=== PATIENT | female | born 1955 | race Caucasian/White ===

== ENCOUNTER → 2017-01-07 | Outpatient (CLI) | payer BC ==
[~2017-01-07] MED LIST: 3N1 COMMODE MC; ASPI325T32 PO; CPM MC; ESCI20TA PO; HYDR-3498 PO; PANT40TA4 PO; TRAM50TA2 PO; WALK1EAC23 MC; ZOLP10TA PO; [UNRECOGNIZED DRUG - CODE] PO
--- NOTE | 2017-01-07 15:24 | RADRPT ---
PROCEDURE: XR left knee. CLINICAL INDICATION: Knee pain. TECHNIQUE: AP weightbearing, lateral weightbearing and sunrise views are available for review. COMPARISON: 12/30/2015 FINDINGS: There is a total knee replacement. There is no evidence of loosening of the prosthesis. There is no evidence of hardware failure. The osseous structures are normal in mineralization, architecture and alignment No acute fracture or dislocation is seen.No osseous lesions are identified. The soft tiss ues are unremarkable . IMPRESSION: Unremarkable total knee replacement. RPTAT: [facility] .Elias Stahl MD, MD Date Time Electronically viewed and signed by .Elias Stahl MD, MD on 01/07/2017 15:23 .B/
== END | disposition home or self-care (01) ==
LOC: HKI 13:31
PROVIDERS: ATTEND Orthopaedic Surgery
DX: Z47.89 Encounter for other orthopedic aftercare (principal); Z96.652 Presence of left artificial knee joint
CPT/HCPCS: 73562; G0463